=== PATIENT | female | born 1990 | race American Indian/Alaskan Native ===

== ENCOUNTER 2017-11-26 16:36 | Emergency (ER) | payer SELFPAY ==
[2017-11-26 16:40] VITALS: BP 119/88
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
== END 2017-11-26 17:47 | disposition home or self-care (01) ==
LOC: ED 16:36
DX: S61.212A Laceration without foreign body of right middle finger without damage to nail, initial encounter (principal); W26.8XXA Contact with other sharp object(s), not elsewhere classified, initial encounter; Y93.89 Activity, other specified; Y92.89 Other specified places as the place of occurrence of the external cause; Y99.8 Other external cause status
CPT/HCPCS: 99282

== ENCOUNTER 2018-05-02 21:48 | Emergency (ER) | payer SELFPAY ==
[2018-05-02 22:23] VITALS: BP 102/73
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
[2018-05-03] MEDS ORDERED: VICKS SINEX NS ONE (01:45)
[2018-05-03] MEDS ORDERED: NORCO 5/325 PO ONE (01:45)
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
== END 2018-05-03 02:45 | disposition home or self-care (01) ==
LOC: ED 21:48
DX: S02.2XXA Fracture of nasal bones, initial encounter for closed fracture (principal); F17.200 Nicotine dependence, unspecified, uncomplicated; Y04.8XXA Assault by other bodily force, initial encounter; Y93.89 Activity, other specified; Y92.89 Other specified places as the place of occurrence of the external cause; Y99.8 Other external cause status
CPT/HCPCS: 70150; 99283